=== PATIENT | female | born 1940 | race Caucasian/White ===

== ENCOUNTER 2023-09-26 12:48 | Inpatient (IN) | payer OTHER, MEDICAID ==
[~2023-09-26] VITALS: Ht 154.9 cm; Wt 64.9 kg
[2023-09-26 12:49] VITALS: BP_SYST 73; PULSE 73; RESP 14; TEMP 97.6; O2SAT 100
[2023-09-26] MEDS: LORazepam 2 MG/ML VIAL IM ONE (13:37)
[2023-09-26 13:42] LABS: BASOPHILS # (AUTO) 0.1 K/uL (0.0-0.2); BASOPHILS % (AUTO) 0.7 % (0.0-2.0); EOSINOPHILS # (AUTO) 0.6 K/uL (0.0-0.4); EOSINOPHILS % (AUTO) 5.8 % (0.0-4.0); HEMATOCRIT 23.4 % (36-48); LYMPHOCYTES # (AUTO) 1.6 K/uL (1.0-5.5); LYMPHOCYTES % (AUTO) 15.3 % (20.5-51.5); MEAN CORPUSCULAR HEMOGLOBIN 32 pg (27-31); MEAN CORPUSCULAR HGB CONC 32 % (32-36); MEAN CORPUSCULAR VOLUME 98 fL (79.0-98.0); MONOCYTES # (AUTO) 0.8 K/uL (0.0-1.0); NEUTROPHILS # (AUTO) 7.1 K/uL (1.8-7.7); NEUTROPHILS % (AUTO) 70.2 % (40.0-70.0); PLATELET COUNT (AUTO) 207 K/uL (130-430); RED CELL DISTRIBUTION WIDTH 19.7 % (9.0-15.0); WHITE BLOOD COUNT (AUTO) 10.2 K/uL (4.8-10.8)
[2023-09-26 13:44] LABS: HEMOGLOBIN 7.6 g/dL (12.0-16.0)
[2023-09-26 13:56] LABS: INR 1.1 (0.8-1.2); PROTHROMBIN TIME 11.4 SECS (9.5-12.5)
[2023-09-26 14:15] LABS: ALANINE AMINOTRANSFERASE 18 U/L (12-78); ALBUMIN 2.3 g/dL (3.4-4.8); ANION GAP 3 (5-15); ASPARTATE AMINOTRANSFERASE 15 U/L (10-37); BILIRUBIN,DIRECT 0.1 mg/dL (0.0-0.3); CALCIUM 11.2 mg/dL (8.4-11.0); CARBON DIOXIDE 36 mmol/L (23-29); CHLORIDE 100 mmol/L (98-107); CREATINE KINASE, TOTAL 20 U/L (26-192); CREATININE 5.26 mg/dL (0.55-1.30); GLUCOSE 155 mg/dL (74-106); SODIUM SERUM 139 mmol/L (136-145); TOTAL BILIRUBIN 0.6 mg/dL (0.0-1.0); TOTAL PROTEIN, SERUM 6.3 g/dL (6.4-8.3); UREA NITROGEN, BLOOD 45 mg/dL (8-21)
[2023-09-26 14:16] LABS: POTASSIUM 5.8 mmol/L (3.5-5.1)
[2023-09-26] MEDS ORDERED: GABA-529 GT (14:50)
[2023-09-26] MEDS ORDERED: CALC667T6 GT (14:50)
[2023-09-26] MEDS ORDERED: AMAN100C18 GT (15:48)
[2023-09-26] MEDS ORDERED: CARV3.1246 GT (15:48)
[2023-09-26] MEDS ORDERED: BISA10SU61 RC (16:20)
[2023-09-26] MEDS ORDERED: DULO60CA65 GT (16:20)
[2023-09-26] MEDS ORDERED: FER300L GT (16:20)
[2023-09-26] MEDS ORDERED: APIX2.5T GT (16:20)
[2023-09-26] MEDS ORDERED: DILT30TA3 GT (16:20)
[2023-09-26] MEDS ORDERED: HYDR50TA44 GT (16:20)
[2023-09-26] MEDS ORDERED: INSU100V7 (16:20)
[2023-09-26] MEDS ORDERED: ISOS20TA8 GT (16:20)
[2023-09-26] MEDS: ASPIRIN 81 MG TABLET(ECOTRIN) PO ONE (16:22)
[2023-09-26] MEDS: SODIUM POLYSTYRENE SULFONATE 15 GM/60 ML UDBTL PO ONE (16:22)
[2023-09-26] MEDS ORDERED: CHOL500015 GT (16:36)
[2023-09-26] MEDS ORDERED: INSU100V11 SUBQ (16:36)
[2023-09-26] MEDS ORDERED: RALO60TA13 GT (16:36)
[2023-09-26] MEDS ORDERED: ASCO500S10 GT (16:36)
[2023-09-26] MEDS ORDERED: ACET325C6 GT (16:36)
[2023-09-26] MEDS ORDERED: METO5SOL22 GT (16:36)
[2023-09-26] MEDS ORDERED: FOLI0.8T42 GT (16:36)
[2023-09-26 20:00] VITALS: BP_SYST 148; PULSE 74; RESP 17; TEMP 98; O2SAT 98
[2023-09-26] MEDS ORDERED: ACETAMINOPHEN 325 MG TABLET GT PRN (23:15)
[2023-09-26] MEDS ORDERED: NON-FORMULARY MEDICATION (Acetaminophen (Tylenol) 2 CAP) GT SCH (23:15)
[2023-09-26] MEDS ORDERED: HYDROcodone/ACETAMIN 5-325 MG TAB (NORCO/ VICODIN) GT PRN (23:15)
[2023-09-26] MEDS ORDERED: NALOXONE HCL 0.4 MG/ML AMP (NARCAN) IVP PRN ×2 (23:15)
[2023-09-26] MEDS ORDERED: ONDANSETRON HCL 4 MG/2 ML VIAL IVP PRN (23:15)
[2023-09-26] MEDS ORDERED: BISACODYL 10 MG/SUPPOSITORY RC PRN (23:15)
[2023-09-26] MEDS ORDERED: LORazepam 2 MG/ML VIAL IVP PRN (23:15)
[2023-09-26] MEDS ORDERED: HYDROcodone/ACETAMIN 10-325 MG TAB GT PRN (23:15)
[2023-09-27 00:23] VITALS: BP_SYST 131; PULSE 71; RESP 15; TEMP 98.4; O2SAT 95
[2023-09-27] MEDS: METOCLOPRAMIDE HCL 10 MG/10 ML UDC GT SCH (00:32)
[2023-09-27] MEDS: hydrALAZINE HCL 25 MG TABLET GT SCH (00:33)
[2023-09-27] MEDS: NACL 0.9% 1,000 ML IV SCH (00:34)
[2023-09-27] MEDS: INSULIN REGULAR, HUMAN 100 UNITS/ML, 3 ML VIAL (humuLIN R) SUBCUT PRN (05:47)
[2023-09-27 05:58] LABS: BASOPHILS # (AUTO) 0.1 K/uL (0.0-0.2); EOSINOPHILS # (AUTO) 0.6 K/uL (0.0-0.4); EOSINOPHILS % (AUTO) 6.5 % (0.0-4.0); HEMOGLOBIN 7.1 g/dL (12.0-16.0); LYMPHOCYTES # (AUTO) 1.3 K/uL (1.0-5.5); LYMPHOCYTES % (AUTO) 13.5 % (20.5-51.5); MEAN CORPUSCULAR HEMOGLOBIN 33 pg (27-31); MEAN CORPUSCULAR HGB CONC 33 % (32-36); MEAN CORPUSCULAR VOLUME 100 fL (79.0-98.0); MONOCYTES # (AUTO) 0.7 K/uL (0.0-1.0); MONOCYTES % (AUTO) 7.4 % (1.7-9.3); NEUTROPHILS # (AUTO) 6.6 K/uL (1.8-7.7); NEUTROPHILS % (AUTO) 71.6 % (40.0-70.0); PLATELET COUNT (AUTO) 185 K/uL (130-430); RED BLOOD CELL COUNT(AUTO) 2.19 MIL/uL (4.2-6.2); RED CELL DISTRIBUTION WIDTH 19.8 % (9.0-15.0); WHITE BLOOD COUNT (AUTO) 9.3 K/uL (4.8-10.8)
[2023-09-27 06:32] LABS: ALANINE AMINOTRANSFERASE 16 U/L (12-78); ANION GAP 5 (5-15); ASPARTATE AMINOTRANSFERASE 15 U/L (10-37); CALCIUM 10.5 mg/dL (8.4-11.0); CARBON DIOXIDE 36 mmol/L (23-29); CHLORIDE 100 mmol/L (98-107); CREATININE 6.34 mg/dL (0.55-1.30); GLUCOSE 195 mg/dL (74-106); PHOSPHORUS 8.9 mg/dL (2.7-4.5); SODIUM SERUM 141 mmol/L (136-145); TOTAL BILIRUBIN 0.6 mg/dL (0.0-1.0); UREA NITROGEN, BLOOD 56 mg/dL (8-21)
[2023-09-27 07:39] LABS: POTASSIUM 5.8 mmol/L (3.5-5.1)
[2023-09-27 07:40] LABS: HEMATOCRIT 21.8 % (36-48)
[2023-09-27 08:44] VITALS: BP_SYST 135; PULSE 78; RESP 18; TEMP 97.1; O2SAT 96
[2023-09-27 09:40] VITALS: O2SAT 95
[2023-09-27] MEDS: RALOXIFENE HCL 60 MG TABLET (EVISTA) GT SCH (09:56)
[2023-09-27] MEDS: CALCIUM ACETATE 667 MG CAP GT SCH (09:56)
[2023-09-27] MEDS: FERROUS SULFATE 300 MG/5 ML UDC GT SCH (09:56)
[2023-09-27] MEDS: CARVEDILOL 3.125 MG TABLET (COREG) GT SCH (09:57)
[2023-09-27] MEDS: ASCORBIC ACID 500 MG TABLET GT SCH (09:57)
[2023-09-27] MEDS: GABAPENTIN 100 MG CAPSULE GT SCH (09:57)
[2023-09-27] MEDS: DULoxetine HCL 30 MG CAPSULE.DR (CYMBALTA) GT SCH (09:57)
[2023-09-27] MEDS: ISOSORBIDE DINITRATE 20 MG TABLET (ISORDIL) GT SCH (09:58)
[2023-09-27] MEDS: CHOLECALCIFEROL (VITAMIN D3) 5,000 UNIT TABLET GT SCH (09:58)
[2023-09-27] MEDS: DILTIAZEM HCL 30 MG TABLET GT SCH (09:58)
[2023-09-27] MEDS: NEPHROVITE, (FOLIC ACID/VITAMIN B COMP W-C 1 TAB) GT SCH (09:59)
[2023-09-27] MEDS: APIXABAN 2.5 MG TABLET GT SCH (10:03)
[2023-09-27] MEDS: INSULIN GLARGINE 100 UNITS/ML, 10 ML VIAL SQ SCH (10:04)
[2023-09-27 11:06] VITALS: BP_SYST 138; PULSE 82; RESP 18; TEMP 98.7; O2SAT 99
[2023-09-27] MEDS: LORazepam 2 MG/ML VIAL IM PRN (14:06)
[2023-09-27 16:14] VITALS: BP_SYST 134; PULSE 79; RESP 18; TEMP 98.5; O2SAT 99
[2023-09-27 20:10] VITALS: O2SAT 97
[2023-09-28 00:41] VITALS: BP_SYST 135; PULSE 98; RESP 16; TEMP 97.8; O2SAT 100
[2023-09-28 04:19] LABS: BASOPHILS # (AUTO) 0.1 K/uL (0.0-0.2); BASOPHILS % (AUTO) 0.8 % (0.0-2.0); EOSINOPHILS # (AUTO) 0.7 K/uL (0.0-0.4); EOSINOPHILS % (AUTO) 6.1 % (0.0-4.0); HEMATOCRIT 24.9 % (36-48); HEMOGLOBIN 8.4 g/dL (12.0-16.0); LYMPHOCYTES # (AUTO) 1.6 K/uL (1.0-5.5); LYMPHOCYTES % (AUTO) 14.7 % (20.5-51.5); MEAN CORPUSCULAR HEMOGLOBIN 32 pg (27-31); MEAN CORPUSCULAR HGB CONC 34 % (32-36); MEAN CORPUSCULAR VOLUME 96 fL (79.0-98.0); MONOCYTES # (AUTO) 0.7 K/uL (0.0-1.0); MONOCYTES % (AUTO) 6.7 % (1.7-9.3); NEUTROPHILS # (AUTO) 7.7 K/uL (1.8-7.7); NEUTROPHILS % (AUTO) 71.7 % (40.0-70.0); PLATELET COUNT (AUTO) 173 K/uL (130-430); RED BLOOD CELL COUNT(AUTO) 2.61 MIL/uL (4.2-6.2); RED CELL DISTRIBUTION WIDTH 19.9 % (9.0-15.0); WHITE BLOOD COUNT (AUTO) 10.7 K/uL (4.8-10.8)
[2023-09-28 04:41] LABS: ALANINE AMINOTRANSFERASE 16 U/L (12-78); ALBUMIN 2.1 g/dL (3.4-4.8); ANION GAP 5 (5-15); ASPARTATE AMINOTRANSFERASE 17 U/L (10-37); CALCIUM 9.9 mg/dL (8.4-11.0); CARBON DIOXIDE 35 mmol/L (23-29); CHLORIDE 99 mmol/L (98-107); CREATININE 3.36 mg/dL (0.55-1.30); GLUCOSE 190 mg/dL (74-106); PHOSPHORUS 4.8 mg/dL (2.7-4.5); POTASSIUM 3.8 mmol/L (3.5-5.1); SODIUM SERUM 139 mmol/L (136-145); TOTAL BILIRUBIN 0.7 mg/dL (0.0-1.0); TOTAL PROTEIN, SERUM 6.2 g/dL (6.4-8.3); UREA NITROGEN, BLOOD 28 mg/dL (8-21)
[2023-09-28 08:22] VITALS: BP_SYST 107; PULSE 84; RESP 18; TEMP 97.2; O2SAT 95
[2023-09-28 09:00] VITALS: O2SAT 96
[2023-09-28 12:23] VITALS: BP_SYST 149; PULSE 74; RESP 18; TEMP 98.4; O2SAT 99
[2023-09-28 16:18] VITALS: BP_SYST 102; PULSE 75; RESP 18; TEMP 97.5; O2SAT 99
[2023-09-28 19:28] VITALS: BP_SYST 126; PULSE 82; RESP 18; TEMP 97.6; O2SAT 96
== END 2023-09-28 19:50 | DRG 70 ==
LOC: SED 12:48 → STU 17:00
PROVIDERS: ADMIT Preventive Medicine Preventive Medicine/Occupational Environmental Medicine; ATTEND Preventive Medicine Preventive Medicine/Occupational Environmental Medicine
PROC: 02HV33Z Insertion of Infusion Device into Superior Vena Cava, Percutaneous Approach (ICD-10-PCS; principal; 2023-09-26)
PROC: B548ZZA Ultrasonography of Superior Vena Cava, Guidance (ICD-10-PCS; 2023-09-26)
PROC: 30233N1 Transfusion of Nonautologous Red Blood Cells into Peripheral Vein, Percutaneous Approach (ICD-10-PCS; 2023-09-27)
PROC: 5A1D70Z Performance of Urinary Filtration, Intermittent, Less than 6 Hours Per Day (ICD-10-PCS; 2023-09-27)
DX: G93.49 Other encephalopathy (principal); E43 Unspecified severe protein-calorie malnutrition; N18.6 End stage renal disease; I12.0 Hypertensive chronic kidney disease with stage 5 chronic kidney disease or end stage renal disease; N17.9 Acute kidney failure, unspecified; E87.5 Hyperkalemia; Z79.899 Other long term (current) drug therapy; D63.1 Anemia in chronic kidney disease; R13.10 Dysphagia, unspecified; E11.22 Type 2 diabetes mellitus with diabetic chronic kidney disease; E88.09 Other disorders of plasma-protein metabolism, not elsewhere classified; E83.39 Other disorders of phosphorus metabolism; E11.65 Type 2 diabetes mellitus with hyperglycemia; Z93.1 Gastrostomy status; Z86.74 Personal history of sudden cardiac arrest; Z86.73 Personal history of transient ischemic attack (TIA), and cerebral infarction without residual deficits; Z79.01 Long term (current) use of anticoagulants; Z79.4 Long term (current) use of insulin; Z68.27 Body mass index [BMI] 27.0-27.9, adult
CPT/HCPCS: 36415; 71045; 76770; 80048; 80053; 80076; 82550; 82948; 83605; 83735; 84100; 84484; 85025; 85610; 85730; 86886; 86900; 86901; 86920; 87081; 90935; 93005; 93306; 96372; 97110-GP; 97530-GP; 99285; G0378; J1815; J2060; J8597; P9021